=== PATIENT | male | born 1960 | race Caucasian/White ===

== ENCOUNTER 2017-12-16 14:08 | Emergency (ER) | payer OTHER ==
[~2017-12-16] VITALS: Ht 175.3 cm; Wt 47.0 kg
[2017-12-16 14:15] VITALS: BP 121/86
[2017-12-16] MEDS ORDERED: benoxinate/fluorescein ophth drops 5ml bottle EACHEYE ONE (14:40)
[2017-12-16] MEDS ORDERED: PROPARACAINE/FLUORESCEIN ophthalmic drops 5ml bottle EACHEYE ONE (14:45)
[2017-12-16] MEDS ORDERED: TOBR5DRO2 EACHEYE (14:50)
== END 2017-12-16 15:34 | disposition home or self-care (01) ==
LOC: ER 14:09
DX: H16.002 Unspecified corneal ulcer, left eye (principal); Z79.899 Other long term (current) drug therapy
CPT/HCPCS: 99283